=== PATIENT | male | born 1980 | race Caucasian/White ===

== ENCOUNTER 2023-03-02 17:42 | Emergency (ER) | payer BC ==
[2023-03-02] MEDS ORDERED: DOXYCYCLINE HYCLATE 100 MG CAPSULE PO ONE ×2 (17:56→18:00)
[2023-03-02 18:11] VITALS: BP 147/97; PULSE 89; RESP 18; TEMP 98.1; BMI 41.5
== END 2023-03-02 18:03 | disposition home or self-care (01) ==
LOC: FER 17:42
PROC: 0JCM3ZZ Extirpation of Matter from Left Upper Leg Subcutaneous Tissue and Fascia, Percutaneous Approach (ICD-10-PCS; principal; 2023-03-02)
DX: S70.362A Insect bite (nonvenomous), left thigh, initial encounter (principal); W57.XXXA Bitten or stung by nonvenomous insect and other nonvenomous arthropods, initial encounter
CPT/HCPCS: 99283-25